=== PATIENT | female | born 1985 | race African-American/Black ===

== ENCOUNTER 2017-02-26 16:50 | Emergency (ER) | payer SELFPAY ==
[~2017-02-26] VITALS: Ht 170.2 cm; Wt 95.0 kg
[2017-02-26 16:51] VITALS: BP 165/90; PULSE 90; RESP 14; TEMP 99; O2SAT 100
[2017-02-26] MEDS ORDERED: AMOXICILLIN/CLAVULANATE K 875 MG TAB PO ONE (18:30)
[2017-02-26] MEDS ORDERED: TETANUS/DIPHTHERIA TOXOID ADULT 0.5 ML VIAL IM ONE (18:30)
[2017-02-26] MEDS ORDERED: LIDOCAINE HCL 1% 50 ML VIAL INFIL ONE (18:30)
[2017-02-26] MEDS ORDERED: AUGM875T3 PO (18:58)
[2017-02-26] MEDS ORDERED: DICL75TA PO (18:58)
--- NOTE | 2017-02-26 19:16 | PD ---
HPI Chief Complaint: Bite or Sting Time Seen by Provider: 18:23 Travel History International Travel<30 days: No Contact w/Intl Traveler<30days: No Traveled to known affect area: No History of Present Illness HPI 31-year-old female that presents to the ED for evaluation of dog bite to the left posterior calf. This happened about an hour before coming. Patient called the police as well as the animal control who have guarding contact with the dog's maintenance fitter. Per patient the doxycycline stated that the dogs up-to-date with shots. Patient herself does not know when her last tetanus shot was done. She states that the pain is 5 out of 10. She is able to walk with no issues. She has one small puncture wound. Per patient the pain is 7 out of 10. She was concerned because of the sight of possible "meat". Patient denies any excessive bleeding. Has no allergies to medication. No other medical issues. [facility] Social History Alcohol Use: No Tobacco Use: No Substance Use: No Allergies-Medications (Allergen,Severity, Reaction): Coded Allergies: No Known Allergies (Unverified , 02/26/17) Reported Meds & Prescriptions Reported Meds & Active Scripts Active Diclofenac Sodium DR (Diclofenac Sodium) 75 Mg Tabdr 75 Mg PO BID PRN Augmentin (Amoxicillin-Clavulanate) 875-125 Mg Tab 1 Tab PO BID 7 Days Review of Systems Except as stated in HPI: all other systems reviewed are Neg Physical Exam Narrative GENERAL: SKIN: Warm and dry. HEAD: Atraumatic. Normocephalic. EYES: Pupils equal and round. No scleral icterus. No injection or drainage. ENT: No nasal bleeding or discharge. Mucous membranes pink and moist. Tongue is midline. No uvula deviation. NECK: Trachea midline. No JVD. CARDIOVASCULAR: Regular rate and rhythm. RESPIRATORY: No accessory muscle use. Clear to auscultation. Breath sounds equal bilaterally. GASTROINTESTINAL: Abdomen soft, non-tender, nondistended. Hepatic and splenic margins not palpable. MUSCULOSKELETAL: Extremities without clubbing, cyanosis, or edema. No obvious deformities. Full range of motion of the upper and lower extremities bilaterally. 2+ pulses bilaterally. Patient has a small puncture wound-like lesion which is about 1.5 cm on the posterior left calf. No obvious muscle, tendon damage noted. Fatty tissue noted. Patient has another one that is smaller that is less than half a centimeter right next to this one. Able to move the foot fully. No foreign body noted. NEUROLOGICAL: Awake and alert. No obvious cranial nerve deficits. Motor grossly within normal limits. Five out of 5 muscle strength in the arms and legs. Normal speech. PSYCHIATRIC: Appropriate mood and affect; insight and judgment normal. Data Data Last Documented VS Vital Signs Date Time Temp Pulse Resp B/P (MAP) Pulse Ox O2 Delivery O2 Flow Rate FiO2 02/26/17 16:51 99.0 90 14 165/90 (115) 100 Orders Orders Wound Care (02/26/17 18:29) Tetanus/Diphtheria Tox Adult (Tetanus/Di (02/26/17 18:30) Lidocaine 1% Inj (50 Ml) (Xylocaine 1% I (02/26/17 18:30) Amoxicil-Clavulanate (Augmentin) (02/26/17 18:30) Ed Discharge Order (02/26/17 18:59) MDM Medical Decision Making Medical Screen Exam Complete: Yes Emergency Medical Condition: Yes Medical Record Reviewed: Yes Differential Diagnosis Dogbite versus puncture wound versus laceration Narrative Course 31-year-old female that presents to the ED for evaluation of dog bite. Patient was properly examined and was found to have signs and symptoms consistent with dog bite. After explained procedure to the patient she agreed to it laceration was repaired as stated in procedure note. Patient was given Augmentin and tetanus booster here. Animal control was already made aware of the animal incident and patient was told to follow up with animal control to see whether patient needs rabies shots which I do not believe are indicated at this time. Patient agrees with this plan. Patient will be given a prescription for diclofenac sodium for pain as well as Augmentin. Told to follow up closely with PCP. Get sutures removed in 14 days. See ED for any worsening symptoms. Procedures Procedure Narrative LACERATION LOCATION: left calf LENGTH: 1.5 cm NUMBER OF STITCHES/ARGENIS: 1 suture (horizontal mattress) REPAIR: The area of the laceration was prepped with Betadine and sterilely draped. The laceration was infiltrated with 1% Xylocaine. The wound was copiously irrigated and explored without evidence of foreign body, tendon injury or neurovascular injury. The wound was closed using 3-0 Ethilone. This was a 1 layer repair. A sterile dressing was applied. The patient was advised to keep the dressing clean and dry. Patient tolerated the procedure well. Diagnosis Primary Impression: Dog bite Qualified Codes: W54.0XXA - Bitten by dog, initial encounter Patient Instructions: General Instructions Additional Instructions: Wound care daily with soap and water. You can apply bandaid if needed. Neosporyn or OTC antibiotic ointment to area as needed twice a day for at least 2 weeks to help with scarring and prevent infection. Meoderma OTC for scarring if needed. Avoid sun exposure for 2 months as the sun could make scar darker and more noticeable. Get sutures removed in 14 days. See ED if worst. Med/Other Pt SpecificInfo: Prescription(s) given, Wound Care Scripts Diclofenac Sodium DR (Diclofenac Sodium DR) 75 Mg Tabdr 75 MG PO BID Y for PAIN SCALE 1 TO 10, #20 TAB 0 Refills Prov: Sean Frost MD 02/26/17 Amoxicillin-Clavulanate (Augmentin) 875-125 Mg Tab 1 TAB PO BID for Infection for 7 Days, #14 TAB 0 Refills Prov: Sean Frost MD 02/26/17 Disposition: 01 DISCHARGE HOME Condition: Stable Slade Marquis Feb 26, 2017 19:16
== END 2017-02-26 19:44 | disposition home or self-care (01) ==
LOC: NEPE 16:50 → EDBD 16:50 → NEPE 19:44
DX: S81.852A Open bite, left lower leg, initial encounter (principal); W54.0XXA Bitten by dog, initial encounter; Z23 Encounter for immunization
CPT/HCPCS: 12001; 90471; 90714